=== PATIENT | female | born 1950 | race Caucasian/White ===

== ENCOUNTER 2017-09-26 14:23 | Inpatient (IN) | payer MEDICAID, MEDICARE ==
[~2017-09-26] VITALS: Ht 165.1 cm; Wt 92.1 kg
[~2017-09-26 14:23] MED LIST: FOLI1 PO; MIRT15 PO; MULT-1239 PO; PANT40TA25 PO; THIA100 PO
[2017-09-26] MEDS ORDERED: ALPR0.5T8 PO (14:49)
[2017-09-26] MEDS ORDERED: SERT50TA12 PO (14:49)
[2017-09-26 16:03] LABS: BASOPHILS % (AUTO) 0.6 % (0.0-2.0); HEMATOCRIT 36.5 % (36-46); HEMOGLOBIN 12.5 g/dL (12.0-16.0); LYMPHOCYTES # (AUTO) 1.7 K/uL (1.0-4.8); LYMPHOCYTES % (AUTO) 26.5 % (22.0-44.0); MEAN CORPUSCULAR HEMOGLOBIN 29.8 pg (26.0-34.0); MEAN CORPUSCULAR HGB CONC 34.2 G/dL (31.0-37.0); MEAN CORPUSCULAR VOLUME 87 fL (80-100); MONOCYTES # (AUTO) 0.7 K/uL (0.1-1.0); MONOCYTES % (AUTO) 10.6 % (2.0-9.0); NEUTROPHILS % (AUTO) 61.3 % (40.0-70.0); PLATELET COUNT (AUTO) 217 K/uL (150-450)
[2017-09-26 16:24] LABS: ANION GAP 8 mmol/L (8-16); CALCIUM, TOTAL 8.7 mg/dL (8.8-10.5); CARBON DIOXIDE 28 mmol/L (22-29); CHLORIDE 104 mmol/L (98-107); CREATININE 0.74 mg/dL (0.60-1.30); GLOMERULAR FILTR. RATE CALC > 60 mL/min (>60); GLUCOSE,RANDOM 106 mg/dL (70-110); POTASSIUM 3.6 mmol/L (3.5-5.1); SODIUM SERUM 140 mmol/L (136-145); UREA NITROGEN, BLOOD 13 mg/dL (7-18)
[2017-09-26 16:38] LABS: ALANINE AMINOTRANSFERASE 21 U/L (12-78); ALBUMIN 3.2 g/dL (3.4-5.0); ALKALINE PHOSPHATASE 128 U/L (46-116); ASPARTATE AMINOTRANSFERASE 20 U/L (15-37); BILIRUBIN,TOTAL 0.3 mg/dL (0.1-1.0); TOTAL PROTEIN, SERUM 7.3 g/dL (6.4-8.2)
[2017-09-26] MEDS ORDERED: LORazepam 2 MG TABLET PO ONE (16:45)
[2017-09-26] MEDS ORDERED: HALOPERIDOL 5 MG TABLET PO ONE (16:45)
[2017-09-26 17:20] LABS: APPEARANCE,URINE CLOUDY (CLEAR); BILIRUBIN,URINE NEGATIVE (NEGATIVE); GLUCOSE, URINE (UA) NEGATIVE (NEGATIVE); KETONES,URINE NEGATIVE (NEGATIVE); LEUKOCYTE ESTERASE ,URINE LARGE (NEGATIVE); NITRATE,URINE NEGATIVE (NEGATIVE); OCCULT BLOOD,URINE TRACE (NEGATIVE); PROTEIN,URINE NEGATIVE (NEGATIVE); UROBILINOGEN,URINE 0.2 mg/dL (<=1.0)
[2017-09-26 17:24] LABS: AMPHET/METH SCREEN,URINE NEGATIVE (NEGATIVE); BARBITURATE SCREEN, URINE NEGATIVE (NEGATIVE); BENZODIAZEPINES SCREEN,URINE NEGATIVE (NEGATIVE); CANNABINOID SCREEN,URINE NEGATIVE (NEGATIVE); COCAINE SCREEN,URINE NEGATIVE (NEGATIVE); METHADONE SCREEN, URINE NEGATIVE (NEGATIVE); OPIATE SCREEN,URINE NEGATIVE (NEGATIVE)
[2017-09-26 17:28] LABS: PHENCYCLIDINE SCREEN,URINE NEGATIVE (NEGATIVE)
[2017-09-26 17:38] LABS: BACTERIA,URINE Many /HPF (None Seen); WBC,URINE 51-100 /HPF (0-5)
[2017-09-26 17:39] LABS: SQUAMOUS EPITHELIAL CELL,UR Few /LPF (None Seen)
[2017-09-26] MEDS ORDERED: MAGNESIUM HYDROXIDE SUSPENSION 30 ML UDCUP PO PRN (21:00)
[2017-09-26] MEDS ORDERED: MAG HYDROX/AL HYDROX/SIMETH ES 30 ML SUSPENSION UDCUP PO PRN (21:00)
[2017-09-26] MEDS ORDERED: ZOLPIDEM TARTRATE 10 MG TABLET PO PRN (21:00)
[2017-09-26] MEDS ORDERED: CEPHALEXIN MONOHYDRATE 500 MG CAPSULE PO ONE (21:00)
[2017-09-27 09:00] VITALS: BP 121/61
[2017-09-27 10:13] LABS: CHOL/HDL RATIO 3.4 (3.9-5.7)
[2017-09-27] MEDS: LORazepam 2 MG TABLET PO PRN (10:55)
[2017-09-27] MEDS: CIPROFLOXACIN HCL 500 MG TABLET PO SCH ×2 (11:32→20:21)
[2017-09-27] MEDS: PANTOPRAZOLE SODIUM 40 MG DR TABLET PO SCH (11:32)
[2017-09-27] MEDS: HALOPERIDOL 5 MG TABLET PO PRN (12:10)
[2017-09-27] MEDS: ClonazePAM 0.5 MG TABLET PO SCH (20:21)
[2017-09-27] MEDS: THIAMINE HCL 100 MG TABLET PO SCH (20:21)
[2017-09-27] MEDS: QUEtiapine FUMARATE 200 MG TABLET PO SCH (20:26)
[2017-09-28 01:09] VITALS: BP 104/61
[2017-09-28] MEDS: ClonazePAM 0.5 MG TABLET PO SCH ×2 (08:39→16:20)
[2017-09-28] MEDS: PANTOPRAZOLE SODIUM 40 MG DR TABLET PO SCH (08:39)
[2017-09-28] MEDS: THIAMINE HCL 100 MG TABLET PO SCH ×2 (08:39→16:20)
[2017-09-28] MEDS: CIPROFLOXACIN HCL 500 MG TABLET PO SCH ×2 (08:39→16:20)
[2017-09-28] MEDS: MULTIVITAMINS WITH MINERALS, THERAPEUTIC TABLET PO SCH (08:39)
[2017-09-28] MEDS: SERTRALINE HCL 50 MG TABLET PO SCH (08:40)
[2017-09-28] MEDS: FOLIC ACID 1 MG TABLET PO SCH (08:40)
[2017-09-28 10:19] VITALS: BP 127/81
[2017-09-28 16:32] VITALS: BP 114/72
[2017-09-28] MEDS: QUEtiapine FUMARATE 200 MG TABLET PO SCH (19:57)
[2017-09-29 08:26] VITALS: BP 117/81
[2017-09-29] MEDS: THIAMINE HCL 100 MG TABLET PO SCH ×2 (08:42→17:05)
[2017-09-29] MEDS: MULTIVITAMINS WITH MINERALS, THERAPEUTIC TABLET PO SCH (08:42)
[2017-09-29] MEDS: ClonazePAM 0.5 MG TABLET PO SCH ×2 (08:42→17:06)
[2017-09-29] MEDS: CIPROFLOXACIN HCL 500 MG TABLET PO SCH ×2 (08:42→17:05)
[2017-09-29] MEDS: FOLIC ACID 1 MG TABLET PO SCH (08:42)
[2017-09-29] MEDS: PANTOPRAZOLE SODIUM 40 MG DR TABLET PO SCH (08:43)
[2017-09-29] MEDS: SERTRALINE HCL 50 MG TABLET PO SCH (08:43)
[2017-09-29] MEDS: HALOPERIDOL 5 MG TABLET PO PRN (08:44)
[2017-09-29] MEDS: LORazepam 2 MG TABLET PO PRN (08:44)
[2017-09-29 16:29] VITALS: BP 109/61
[2017-09-29] MEDS: QUEtiapine FUMARATE 200 MG TABLET PO SCH (21:04)
[2017-09-30 06:18] VITALS: BP 105/58
[2017-09-30 08:00] VITALS: BP 114/64
[2017-09-30] MEDS: THIAMINE HCL 100 MG TABLET PO SCH ×2 (08:59→16:26)
[2017-09-30] MEDS: MULTIVITAMINS WITH MINERALS, THERAPEUTIC TABLET PO SCH (09:00)
[2017-09-30] MEDS: ClonazePAM 0.5 MG TABLET PO SCH ×2 (09:00→16:26)
[2017-09-30] MEDS: CIPROFLOXACIN HCL 500 MG TABLET PO SCH ×2 (09:00→16:26)
[2017-09-30] MEDS: FOLIC ACID 1 MG TABLET PO SCH (09:00)
[2017-09-30] MEDS: SERTRALINE HCL 50 MG TABLET PO SCH (09:00)
[2017-09-30] MEDS: PANTOPRAZOLE SODIUM 40 MG DR TABLET PO SCH (09:00)
[2017-09-30] MEDS: LORazepam 2 MG TABLET PO PRN (09:09)
[2017-09-30] MEDS: HALOPERIDOL 5 MG TABLET PO PRN (09:09)
[2017-09-30 16:36] VITALS: BP 116/65
[2017-09-30] MEDS: QUEtiapine FUMARATE 200 MG TABLET PO SCH (20:57)
[2017-10-01 08:19] VITALS: BP 118/62
[2017-10-01] MEDS: THIAMINE HCL 100 MG TABLET PO SCH ×2 (09:00→16:02)
[2017-10-01] MEDS: MULTIVITAMINS WITH MINERALS, THERAPEUTIC TABLET PO SCH (09:00)
[2017-10-01] MEDS: PANTOPRAZOLE SODIUM 40 MG DR TABLET PO SCH (09:00)
[2017-10-01] MEDS: ClonazePAM 0.5 MG TABLET PO SCH ×2 (09:00→16:02)
[2017-10-01] MEDS: SERTRALINE HCL 50 MG TABLET PO SCH (09:00)
[2017-10-01] MEDS: FOLIC ACID 1 MG TABLET PO SCH (09:00)
[2017-10-01] MEDS: CIPROFLOXACIN HCL 500 MG TABLET PO SCH ×2 (09:00→16:02)
[2017-10-01 16:18] VITALS: BP 115/66
[2017-10-01] MEDS: ACETAMINOPHEN 325 MG TABLET PO PRN (16:50)
[2017-10-01] MEDS: QUEtiapine FUMARATE 200 MG TABLET PO SCH (20:18)
[2017-10-02 04:00] VITALS: BP 111/59
[2017-10-02] MEDS: THIAMINE HCL 100 MG TABLET PO SCH ×2 (08:23→16:28)
[2017-10-02] MEDS: FOLIC ACID 1 MG TABLET PO SCH (08:23)
[2017-10-02] MEDS: ClonazePAM 0.5 MG TABLET PO SCH ×2 (08:23→16:28)
[2017-10-02] MEDS: PANTOPRAZOLE SODIUM 40 MG DR TABLET PO SCH (08:23)
[2017-10-02] MEDS: MULTIVITAMINS WITH MINERALS, THERAPEUTIC TABLET PO SCH (08:23)
[2017-10-02] MEDS: SERTRALINE HCL 50 MG TABLET PO SCH (08:23)
[2017-10-02] MEDS: CIPROFLOXACIN HCL 500 MG TABLET PO SCH ×2 (08:23→16:28)
[2017-10-02 09:30] VITALS: BP 133/76
[2017-10-02] MEDS: ACETAMINOPHEN 325 MG TABLET PO PRN (09:31)
[2017-10-02 18:18] VITALS: BP 118/80
[2017-10-02] MEDS: QUEtiapine FUMARATE 200 MG TABLET PO SCH (20:17)
[2017-10-03] MEDS: THIAMINE HCL 100 MG TABLET PO SCH ×2 (08:20→16:06)
[2017-10-03] MEDS: ClonazePAM 0.5 MG TABLET PO SCH ×2 (08:20→16:06)
[2017-10-03] MEDS: FOLIC ACID 1 MG TABLET PO SCH (08:20)
[2017-10-03] MEDS: MULTIVITAMINS WITH MINERALS, THERAPEUTIC TABLET PO SCH (08:20)
[2017-10-03] MEDS: PANTOPRAZOLE SODIUM 40 MG DR TABLET PO SCH (08:20)
[2017-10-03] MEDS: SERTRALINE HCL 50 MG TABLET PO SCH (08:20)
[2017-10-03] MEDS: CIPROFLOXACIN HCL 500 MG TABLET PO SCH ×2 (08:20→16:06)
[2017-10-03 10:00] VITALS: BP 119/74
[2017-10-03] MEDS: QUEtiapine FUMARATE 200 MG TABLET PO SCH (20:09)
[2017-10-03 21:41] VITALS: BP 117/72
[2017-10-04 06:02] VITALS: BP 124/76
[2017-10-04] MEDS: PANTOPRAZOLE SODIUM 40 MG DR TABLET PO SCH (08:06)
[2017-10-04] MEDS: ClonazePAM 0.5 MG TABLET PO SCH (08:06)
[2017-10-04] MEDS: CIPROFLOXACIN HCL 500 MG TABLET PO SCH (08:06)
[2017-10-04] MEDS: SERTRALINE HCL 50 MG TABLET PO SCH (08:06)
[2017-10-04] MEDS: HALOPERIDOL 5 MG TABLET PO PRN (08:06)
[2017-10-04] MEDS: FOLIC ACID 1 MG TABLET PO SCH (08:07)
[2017-10-04] MEDS: THIAMINE HCL 100 MG TABLET PO SCH (09:36)
[2017-10-04] MEDS: MULTIVITAMINS WITH MINERALS, THERAPEUTIC TABLET PO SCH (09:36)
[2017-10-04 10:03] VITALS: BP 129/68
[2017-10-04 10:58] VITALS: BP 121/67
[2017-10-04] MEDS: ACETAMINOPHEN 325 MG TABLET PO PRN (10:58)
[2017-10-04] MEDS ORDERED: CLON.5 PO (12:51)
[2017-10-04] MEDS ORDERED: QUET200T PO (12:52)
== END 2017-10-04 16:15 | DRG 885 ==
LOC: EMS 14:24 → EEVIPCON 14:24 → AHU 09-27 08:54 → EMS 09-27 08:54 → 3EI 09-28 00:08
PROVIDERS: ADMIT Psychiatry & Neurology Psychiatry; ATTEND Psychiatry & Neurology Psychiatry
DX: F33.3 Major depressive disorder, recurrent, severe with psychotic symptoms (principal); G93.41 Metabolic encephalopathy; N39.0 Urinary tract infection, site not specified; R45.851 Suicidal ideations; K21.9 Gastro-esophageal reflux disease without esophagitis; M19.90 Unspecified osteoarthritis, unspecified site; K59.00 Constipation, unspecified; Z87.11 Personal history of peptic ulcer disease; Z79.899 Other long term (current) drug therapy; Z59.0 Homelessness
CPT/HCPCS: 70450; 84443; 87086; 99285; G0480

== ENCOUNTER 2017-10-12 17:45 | Emergency (ER) | payer MEDICARE ==
[~2017-10-12] VITALS: Ht 162.6 cm; Wt 95.0 kg
[~2017-10-12 17:45] MED LIST changes: +CLON.5 PO; -MIRT15 PO; +QUET200T PO; +SERT50TA12 PO; -THIA100 PO; +THIA100T67 PO
[2017-10-12] MEDS ORDERED: ALPR0.5T8 PO (18:39)
[2017-10-12 19:05] LABS: BASOPHILS % (AUTO) 0.6 % (0.0-2.0); EOSINOPHILS % (AUTO) 1.5 % (1.0-6.0); HEMATOCRIT 35.9 % (36-46); HEMOGLOBIN 12.1 g/dL (12.0-16.0); LYMPHOCYTES # (AUTO) 1.8 K/uL (1.0-4.8); LYMPHOCYTES % (AUTO) 26.9 % (22.0-44.0); MEAN CORPUSCULAR HEMOGLOBIN 29.6 pg (26.0-34.0); MEAN CORPUSCULAR HGB CONC 33.7 G/dL (31.0-37.0); MEAN CORPUSCULAR VOLUME 88 fL (80-100); MONOCYTES # (AUTO) 0.8 K/uL (0.1-1.0); MONOCYTES % (AUTO) 12.2 % (2.0-9.0); NEUTROPHILS # (AUTO) 3.9 K/uL (1.8-7.7); NEUTROPHILS % (AUTO) 58.8 % (40.0-70.0); RED CELL DISTRIBUTION WIDTH 14.7 % (11.5-14.5)
[2017-10-12 19:22] LABS: ANION GAP 6 mmol/L (8-16); CARBON DIOXIDE 30 mmol/L (22-29); CHLORIDE 104 mmol/L (98-107); CREATININE 0.76 mg/dL (0.60-1.30); GLOMERULAR FILTR. RATE CALC > 60 mL/min (>60); GLUCOSE,RANDOM 95 mg/dL (70-110); SODIUM SERUM 140 mmol/L (136-145); UREA NITROGEN, BLOOD 18 mg/dL (7-18)
[2017-10-12 19:26] LABS: ALANINE AMINOTRANSFERASE 21 U/L (12-78); ALBUMIN 3.1 g/dL (3.4-5.0); ALKALINE PHOSPHATASE 166 U/L (46-116); ASPARTATE AMINOTRANSFERASE 19 U/L (15-37); BILIRUBIN,TOTAL 0.3 mg/dL (0.1-1.0); TOTAL PROTEIN, SERUM 7.2 g/dL (6.4-8.2)
[2017-10-12 19:27] LABS: PLATELET COUNT (AUTO) 226 K/uL (150-450); PLATELET MORPHOLOGY COMMENT GIANT PLTS PRESENT
[2017-10-12 20:26] LABS: AMPHET/METH SCREEN,URINE NEGATIVE (NEGATIVE); BARBITURATE SCREEN, URINE NEGATIVE (NEGATIVE); BENZODIAZEPINES SCREEN,URINE POSITIVE (NEGATIVE); CANNABINOID SCREEN,URINE NEGATIVE (NEGATIVE); COCAINE SCREEN,URINE NEGATIVE (NEGATIVE); METHADONE SCREEN, URINE NEGATIVE (NEGATIVE); OPIATE SCREEN,URINE NEGATIVE (NEGATIVE); PHENCYCLIDINE SCREEN,URINE NEGATIVE (NEGATIVE)
[2017-10-12 21:07] LABS: APPEARANCE,URINE CLOUDY (CLEAR); BILIRUBIN,URINE NEGATIVE (NEGATIVE); GLUCOSE, URINE (UA) NEGATIVE (NEGATIVE); KETONES,URINE NEGATIVE (NEGATIVE); LEUKOCYTE ESTERASE ,URINE MODERATE (NEGATIVE); NITRATE,URINE POSITIVE (NEGATIVE); OCCULT BLOOD,URINE NEGATIVE (NEGATIVE); PROTEIN,URINE NEGATIVE (NEGATIVE); UROBILINOGEN,URINE 0.2 mg/dL (<=1.0)
[2017-10-12] MEDS ORDERED: NITROFURANTOIN/NITROFURAN MAC 100 MG CAPSULE [MACROBID] PO ONE (21:15)
[2017-10-12 21:46] LABS: BACTERIA,URINE Many /HPF (None Seen); RBC,URINE 0-2 /HPF (0-2); WBC,URINE 26-50 /HPF (0-5)
[2017-10-12 21:48] LABS: SQUAMOUS EPITHELIAL CELL,UR Few /LPF (None Seen)
[2017-10-12 23:15] VITALS: BP 108/72
== END 2017-10-12 23:22 | disposition home or self-care (01) ==
LOC: EMS 17:45
DX: N39.0 Urinary tract infection, site not specified (principal)
CPT/HCPCS: 36415; 80053; 80307; 81001; 85025; 87086; 99284; G0480

== ENCOUNTER 2017-10-13 16:55 | Inpatient (IN) | payer MEDICARE ==
[~2017-10-13] VITALS: Ht 162.6 cm; Wt 92.6 kg
[~2017-10-13 16:55] MED LIST changes: +ALPR0.5T8 PO
[2017-10-13] MEDS ORDERED: ZOLPIDEM TARTRATE 10 MG TABLET PO PRN (19:00)
[2017-10-13] MEDS: ClonazePAM 0.5 MG TABLET PO SCH (20:02)
[2017-10-13 20:31] VITALS: BP 123/73
[2017-10-13] MEDS: QUEtiapine FUMARATE 200 MG TABLET PO SCH (20:36)
[2017-10-13] MEDS: NITROFURANTOIN/NITROFURAN MAC 100 MG CAPSULE [MACROBID] PO SCH (20:57)
[2017-10-14 06:25] VITALS: BP 122/60
[2017-10-14] MEDS: HALOPERIDOL 5 MG TABLET PO PRN (06:51)
[2017-10-14] MEDS ORDERED: PNEUMOCOCCAL VACCINE POLYVALENT 0.5 ML VIAL [PPSV23] IM ONE (07:15)
[2017-10-14 08:04] LABS: BASOPHILS % (AUTO) 0.4 % (0.0-2.0); EOSINOPHILS % (AUTO) 1.5 % (1.0-6.0); HEMATOCRIT 37.7 % (36-46); HEMOGLOBIN 12.7 g/dL (12.0-16.0); LYMPHOCYTES # (AUTO) 1.8 K/uL (1.0-4.8); LYMPHOCYTES % (AUTO) 31.6 % (22.0-44.0); MEAN CORPUSCULAR HEMOGLOBIN 29.4 pg (26.0-34.0); MEAN CORPUSCULAR HGB CONC 33.8 G/dL (31.0-37.0); MEAN CORPUSCULAR VOLUME 87 fL (80-100); MONOCYTES # (AUTO) 0.6 K/uL (0.1-1.0); MONOCYTES % (AUTO) 9.7 % (2.0-9.0); NEUTROPHILS # (AUTO) 3.3 K/uL (1.8-7.7); NEUTROPHILS % (AUTO) 56.8 % (40.0-70.0); PLATELET COUNT (AUTO) 234 K/uL (150-450); RED BLOOD CELL COUNT(AUTO) 4.33 MIL/uL (4.00-5.20); RED CELL DISTRIBUTION WIDTH 14.7 % (11.5-14.5)
[2017-10-14 08:15] LABS: HEMOGLOBIN A1C 6.2 % (4.5-6.2)
[2017-10-14] MEDS: SERTRALINE HCL 50 MG TABLET PO SCH (08:22)
[2017-10-14] MEDS: ClonazePAM 0.5 MG TABLET PO SCH (08:22)
[2017-10-14] MEDS: NITROFURANTOIN/NITROFURAN MAC 100 MG CAPSULE [MACROBID] PO SCH ×2 (08:22→16:49)
[2017-10-14 08:29] LABS: AMPHET/METH SCREEN,URINE NEGATIVE (NEGATIVE); BARBITURATE SCREEN, URINE NEGATIVE (NEGATIVE); BENZODIAZEPINES SCREEN,URINE POSITIVE (NEGATIVE); CANNABINOID SCREEN,URINE NEGATIVE (NEGATIVE); COCAINE SCREEN,URINE NEGATIVE (NEGATIVE); METHADONE SCREEN, URINE NEGATIVE (NEGATIVE); OPIATE SCREEN,URINE NEGATIVE (NEGATIVE)
[2017-10-14 08:31] LABS: ALANINE AMINOTRANSFERASE 22 U/L (12-78); ALBUMIN 3.1 g/dL (3.4-5.0); ALKALINE PHOSPHATASE 145 U/L (46-116); ANION GAP 3 mmol/L (8-16); ASPARTATE AMINOTRANSFERASE 23 U/L (15-37); BILIRUBIN,TOTAL 0.4 mg/dL (0.1-1.0); CALCIUM, TOTAL 8.9 mg/dL (8.8-10.5); CARBON DIOXIDE 31 mmol/L (22-29); CHLORIDE 107 mmol/L (98-107); CHOL/HDL RATIO 3.5 (3.9-5.7); CHOLESTEROL 201 mg/dL (131-200); FREE T4 (FREE THYROXINE) 0.79 ng/dL (0.76-1.46); GLOMERULAR FILTR. RATE CALC > 60 mL/min (>60); GLUCOSE,RANDOM 81 mg/dL (70-110); HDL CHOLESTEROL 57 mg/dL (40-60); LDL CHOL (CALC.) 128 mg/dL (0-130); POTASSIUM 3.9 mmol/L (3.5-5.1); SODIUM SERUM 141 mmol/L (136-145); THYROID STIMULATING HORMONE 4.75 uIU/mL (0.36-3.74); TOTAL PROTEIN, SERUM 7.3 g/dL (6.4-8.2); TRIGLYCERIDES 79 mg/dL (15-150); UREA NITROGEN, BLOOD 16 mg/dL (7-18)
[2017-10-14 08:31] LABS: PHENCYCLIDINE SCREEN,URINE NEGATIVE (NEGATIVE)
[2017-10-14 08:36] VITALS: BP 140/82
[2017-10-14 08:43] LABS: APPEARANCE,URINE TURBID (CLEAR); BILIRUBIN,URINE NEGATIVE (NEGATIVE); GLUCOSE, URINE (UA) NEGATIVE (NEGATIVE); KETONES,URINE NEGATIVE (NEGATIVE); LEUKOCYTE ESTERASE ,URINE MODERATE (NEGATIVE); NITRATE,URINE NEGATIVE (NEGATIVE); OCCULT BLOOD,URINE NEGATIVE (NEGATIVE); PH,URINE 5.5 (5.0-8.0); PROTEIN,URINE NEGATIVE (NEGATIVE); UROBILINOGEN,URINE 0.2 mg/dL (<=1.0)
[2017-10-14 09:02] LABS: BACTERIA,URINE Many /HPF (None Seen); RBC,URINE 0-2 /HPF (0-2); SQUAMOUS EPITHELIAL CELL,UR Moderate /LPF (None Seen)
[2017-10-14 09:03] LABS: CALCIUM OXALATE CRYSTALS,UR Rare /LPF (None Seen)
[2017-10-14] MEDS ORDERED: ALPRAZolam 0.5 MG TABLET PO PRN (09:15)
[2017-10-14 16:08] VITALS: BP 116/71
[2017-10-14] MEDS ORDERED: IBUPROFEN 400 MG TABLET PO PRN (20:45)
[2017-10-14] MEDS: QUEtiapine FUMARATE 200 MG TABLET PO SCH (21:03)
[2017-10-15 06:15] VITALS: BP 120/56
[2017-10-15] MEDS: LORazepam 1 MG TABLET PO PRN (06:53)
[2017-10-15 08:18] VITALS: BP 109/60
[2017-10-15] MEDS: SERTRALINE HCL 50 MG TABLET PO SCH (08:38)
[2017-10-15] MEDS: CIPROFLOXACIN HCL 250 MG TABLET PO SCH ×2 (08:38→17:05)
[2017-10-15] MEDS: NITROFURANTOIN/NITROFURAN MAC 100 MG CAPSULE [MACROBID] PO SCH ×2 (08:38→17:05)
[2017-10-15 16:04] VITALS: BP 108/68
[2017-10-15] MEDS: QUEtiapine FUMARATE 200 MG TABLET PO SCH (20:24)
[2017-10-16 06:32] VITALS: BP 132/60
[2017-10-16] MEDS: LORazepam 1 MG TABLET PO PRN (06:41)
[2017-10-16] MEDS: NITROFURANTOIN/NITROFURAN MAC 100 MG CAPSULE [MACROBID] PO SCH ×2 (08:16→16:06)
[2017-10-16] MEDS: SERTRALINE HCL 50 MG TABLET PO SCH (08:16)
[2017-10-16] MEDS: CIPROFLOXACIN HCL 250 MG TABLET PO SCH ×2 (08:16→16:06)
[2017-10-16 08:30] VITALS: BP 123/71
[2017-10-16 16:31] VITALS: BP 110/74
[2017-10-16] MEDS: QUEtiapine FUMARATE 200 MG TABLET PO SCH (20:15)
[2017-10-17 06:12] VITALS: BP 120/71
[2017-10-17] MEDS: LORazepam 1 MG TABLET PO PRN ×2 (06:36→16:14)
[2017-10-17 08:33] VITALS: BP 111/60
[2017-10-17] MEDS: NITROFURANTOIN/NITROFURAN MAC 100 MG CAPSULE [MACROBID] PO SCH ×2 (08:33→16:14)
[2017-10-17] MEDS: CIPROFLOXACIN HCL 250 MG TABLET PO SCH ×2 (08:34→16:14)
[2017-10-17] MEDS: SERTRALINE HCL 50 MG TABLET PO SCH (08:34)
[2017-10-17 16:18] VITALS: BP 120/70
[2017-10-17] MEDS: QUEtiapine FUMARATE 200 MG TABLET PO SCH (20:08)
[2017-10-18 05:45] VITALS: BP 132/75
[2017-10-18] MEDS: LORazepam 1 MG TABLET PO PRN (06:03)
[2017-10-18 08:00] VITALS: BP 123/68
[2017-10-18] MEDS: NITROFURANTOIN/NITROFURAN MAC 100 MG CAPSULE [MACROBID] PO SCH ×2 (08:17→16:36)
[2017-10-18] MEDS: SERTRALINE HCL 50 MG TABLET PO SCH (08:17)
[2017-10-18] MEDS: CIPROFLOXACIN HCL 250 MG TABLET PO SCH ×2 (08:18→16:36)
[2017-10-18] MEDS: ACETAMINOPHEN 325 MG TABLET PO PRN (09:32)
[2017-10-18 16:24] VITALS: BP 113/70
[2017-10-18] MEDS: QUEtiapine FUMARATE 200 MG TABLET PO SCH (20:35)
[2017-10-19 00:05] VITALS: BP 117/60
[2017-10-19 08:24] VITALS: BP 140/75
[2017-10-19] MEDS: CIPROFLOXACIN HCL 250 MG TABLET PO SCH ×2 (08:37→16:35)
[2017-10-19] MEDS: NITROFURANTOIN/NITROFURAN MAC 100 MG CAPSULE [MACROBID] PO SCH ×2 (08:37→16:35)
[2017-10-19] MEDS: SERTRALINE HCL 50 MG TABLET PO SCH (08:37)
[2017-10-19] MEDS: ACETAMINOPHEN 325 MG TABLET PO PRN (09:17)
[2017-10-19 16:07] VITALS: BP 123/69
[2017-10-19] MEDS: QUEtiapine FUMARATE 200 MG TABLET PO SCH (20:31)
[2017-10-20 05:36] VITALS: BP 124/75
[2017-10-20] MEDS: LORazepam 1 MG TABLET PO PRN (06:36)
[2017-10-20] MEDS: HALOPERIDOL 5 MG TABLET PO PRN (06:36)
[2017-10-20 08:12] VITALS: BP 123/71
[2017-10-20] MEDS: SERTRALINE HCL 50 MG TABLET PO SCH (08:45)
[2017-10-20] MEDS: NITROFURANTOIN/NITROFURAN MAC 100 MG CAPSULE [MACROBID] PO SCH ×2 (08:45→16:31)
[2017-10-20] MEDS: CIPROFLOXACIN HCL 250 MG TABLET PO SCH ×2 (08:45→16:31)
[2017-10-20 16:12] VITALS: BP 106/62
[2017-10-20] MEDS: QUEtiapine FUMARATE 200 MG TABLET PO SCH (20:33)
[2017-10-21 05:25] VITALS: BP 117/75
[2017-10-21] MEDS: HALOPERIDOL 5 MG TABLET PO PRN (06:10)
[2017-10-21 08:18] VITALS: BP 117/75
[2017-10-21] MEDS: NITROFURANTOIN/NITROFURAN MAC 100 MG CAPSULE [MACROBID] PO SCH ×2 (08:33→16:31)
[2017-10-21] MEDS: LORazepam 1 MG TABLET PO PRN (08:34)
[2017-10-21] MEDS: CIPROFLOXACIN HCL 250 MG TABLET PO SCH ×2 (08:34→16:31)
[2017-10-21] MEDS: SERTRALINE HCL 50 MG TABLET PO SCH (08:34)
[2017-10-21 16:10] VITALS: BP 114/62
[2017-10-21] MEDS: QUEtiapine FUMARATE 200 MG TABLET PO SCH (20:33)
[2017-10-22 05:55] VITALS: BP 118/68
[2017-10-22] MEDS: NITROFURANTOIN/NITROFURAN MAC 100 MG CAPSULE [MACROBID] PO SCH ×2 (08:09→16:32)
[2017-10-22] MEDS: LORazepam 1 MG TABLET PO PRN (08:09)
[2017-10-22] MEDS: SERTRALINE HCL 100 MG TABLET PO SCH (08:09)
[2017-10-22] MEDS: CIPROFLOXACIN HCL 250 MG TABLET PO SCH ×2 (08:09→16:32)
[2017-10-22 08:19] LABS: FREE T4 (FREE THYROXINE) 0.86 ng/dL (0.76-1.46); THYROID STIMULATING HORMONE 3.45 uIU/mL (0.36-3.74)
[2017-10-22 08:27] VITALS: BP 121/74
[2017-10-22 16:06] VITALS: BP 105/62
[2017-10-22] MEDS: QUEtiapine FUMARATE 200 MG TABLET PO SCH (20:07)
[2017-10-23 01:09] VITALS: BP 100/60
[2017-10-23] MEDS: SERTRALINE HCL 100 MG TABLET PO SCH (08:14)
[2017-10-23] MEDS: NITROFURANTOIN/NITROFURAN MAC 100 MG CAPSULE [MACROBID] PO SCH ×2 (08:14→16:34)
[2017-10-23] MEDS: CIPROFLOXACIN HCL 250 MG TABLET PO SCH ×2 (08:14→16:34)
[2017-10-23 08:23] VITALS: BP 114/71
[2017-10-23 16:04] VITALS: BP 106/60
[2017-10-23] MEDS: ACETAMINOPHEN 325 MG TABLET PO PRN (16:34)
[2017-10-23] MEDS: QUEtiapine FUMARATE 200 MG TABLET PO SCH (20:38)
[2017-10-24 05:19] VITALS: BP 140/86
[2017-10-24] MEDS: LORazepam 1 MG TABLET PO PRN (06:44)
[2017-10-24] MEDS: HALOPERIDOL 5 MG TABLET PO PRN (06:44)
[2017-10-24] MEDS: SERTRALINE HCL 100 MG TABLET PO SCH (08:07)
[2017-10-24] MEDS: CIPROFLOXACIN HCL 250 MG TABLET PO SCH ×2 (08:07→16:38)
[2017-10-24] MEDS: NITROFURANTOIN/NITROFURAN MAC 100 MG CAPSULE [MACROBID] PO SCH ×2 (08:07→16:38)
[2017-10-24 08:20] VITALS: BP 117/64
[2017-10-24 16:08] VITALS: BP 110/64
[2017-10-24] MEDS: QUEtiapine FUMARATE 200 MG TABLET PO SCH (20:32)
[2017-10-25 06:16] VITALS: BP 129/70
[2017-10-25] MEDS: SERTRALINE HCL 100 MG TABLET PO SCH (08:07)
[2017-10-25] MEDS: NITROFURANTOIN/NITROFURAN MAC 100 MG CAPSULE [MACROBID] PO SCH ×2 (08:07→16:38)
[2017-10-25] MEDS: LORazepam 1 MG TABLET PO PRN (08:07)
[2017-10-25] MEDS: CIPROFLOXACIN HCL 250 MG TABLET PO SCH ×2 (08:07→16:38)
[2017-10-25 08:22] VITALS: BP 118/77
[2017-10-25 16:09] VITALS: BP 106/62
[2017-10-25] MEDS: QUEtiapine FUMARATE 200 MG TABLET PO SCH (20:38)
[2017-10-26 00:13] VITALS: BP 111/88
[2017-10-26] MEDS: LORazepam 1 MG TABLET PO PRN (06:30)
[2017-10-26] MEDS: CIPROFLOXACIN HCL 250 MG TABLET PO SCH ×2 (08:04→16:34)
[2017-10-26] MEDS: SERTRALINE HCL 100 MG TABLET PO SCH (08:04)
[2017-10-26] MEDS: NITROFURANTOIN/NITROFURAN MAC 100 MG CAPSULE [MACROBID] PO SCH ×2 (08:04→16:34)
[2017-10-26 08:27] VITALS: BP 118/72
[2017-10-26 16:10] VITALS: BP 113/73
[2017-10-26] MEDS: QUEtiapine FUMARATE 200 MG TABLET PO SCH (20:35)
[2017-10-27 01:01] VITALS: BP 106/61
[2017-10-27] MEDS: LORazepam 1 MG TABLET PO PRN (06:18)
[2017-10-27 08:07] VITALS: BP 112/71
[2017-10-27] MEDS: NITROFURANTOIN/NITROFURAN MAC 100 MG CAPSULE [MACROBID] PO SCH (08:24)
[2017-10-27] MEDS: SERTRALINE HCL 100 MG TABLET PO SCH (08:24)
[2017-10-27] MEDS: CIPROFLOXACIN HCL 250 MG TABLET PO SCH (08:24)
[2017-10-27] MEDS ORDERED: SERT100T12 PO (12:39)
[2017-10-27] MEDS ORDERED: CIP250 PO (12:39)
== END 2017-10-27 13:45 | DRG 885 ==
LOC: B2X 18:30
PROVIDERS: ADMIT Psychiatry & Neurology Psychiatry; ATTEND Psychiatry & Neurology Psychiatry
DX: F33.3 Major depressive disorder, recurrent, severe with psychotic symptoms (principal); N39.0 Urinary tract infection, site not specified; E03.9 Hypothyroidism, unspecified; E78.5 Hyperlipidemia, unspecified; F41.9 Anxiety disorder, unspecified; K59.09 Other constipation; K21.9 Gastro-esophageal reflux disease without esophagitis; M19.90 Unspecified osteoarthritis, unspecified site; Z91.19 Patient's noncompliance with other medical treatment and regimen; Z87.11 Personal history of peptic ulcer disease; Z28.21 Immunization not carried out because of patient refusal
CPT/HCPCS: 80307; 83036; 84439; 84443; 87081; 87086